=== PATIENT | female | born 1950 ===

== ENCOUNTER 2018-02-26 02:13 | Emergency (ER) | payer MEDICARE ==
[2018-02-26 02:14] VITALS: BMI 29.9
[2018-02-26 02:28] VITALS: RESP 20; O2SAT 100
[2018-02-26] MEDS ORDERED: Sodium Chloride 0.9% 1,000 ML IV ONE (02:43)
--- NOTE | 2018-02-26 02:46 | C.PDOC ---
History Of Present Illness 67 year old female with PMHx of HTN presents to the ED c/o body aches that started tonight at 12 midnight. Patient has previous history of body pain and is taking Lyrica for it. Patient is also c/o dizziness tonight. Patient denies fever, chills, nausea, vomit, diarrhea, weakness, numbness. Chief Complaint (Nursing): Dizziness/Lightheaded History Per: Patient History/Exam Limitations: no limitations Onset/Duration Of Symptoms: Hrs Current Symptoms Are (Timing): Still Present Number Of Syncopal Episodes: 1 Activity At Onset Of Symptoms: Lying Associated Symptoms Preceding Syncopal Episode: No Predromal Symptoms (Sudden Onset) Seizure Or Post-ictal Symptoms: None Fall Associated With With Symptoms: No Recent travel outside of the [place]: No Additional History Per: Patient Past Medical History Reviewed: Historical Data, Nursing Documentation, Vital Signs Vital Signs: Last Vital Signs Temp 98.1 F 02/26/18 02:24 Pulse 74 02/26/18 02:24 Resp 20 02/26/18 02:24 BP 165/97 H 02/26/18 02:24 Pulse Ox 100 02/26/18 04:11 - Medical History PMH: Anxiety, Arthritis, Gastritis, HTN, Hypercholesterolemia, Kidney Stones Denies: Chronic Kidney Disease Surgical History: Endoscopy Family History: States: Unknown Family Hx - Social History Hx Alcohol Use: No Hx Substance Use: No - Immunization History Hx Tetanus Toxoid Vaccination: No Hx Influenza Vaccination: No Hx Pneumococcal Vaccination: No Review Of Systems Constitutional: Positive for: Malaise. Negative for: Fever, Chills Cardiovascular: Negative for: Chest Pain, Palpitations Respiratory: Negative for: Cough, Shortness of Breath Gastrointestinal: Negative for: Nausea, Vomiting Skin: Negative for: Rash Neurological: Positive for: Dizziness. Negative for: Headache Physical Exam - Physical Exam Appears: Non-toxic, No Acute Distress Skin: Normal Color, Warm, Dry Head: Atraumatic, Normacephalic Eye(s): bilateral: Normal Inspection Oral Mucosa: Moist Neck: Normal ROM, Supple Chest: Symmetrical Cardiovascular: Rhythm Regular Respiratory: Normal Breath Sounds, No Rales, No Rhonchi, No Wheezing Gastrointestinal/Abdominal: Soft, No Tenderness, No Guarding, No Rebound Extremity: Normal ROM, No Tenderness, No Swelling Neurological/Psych: Oriented x3, Normal Speech, Normal Motor, Normal Sensation, Other (no focal deficits) Gait: Steady ED Course And Treatment - Laboratory Results Result Diagrams: 02/26/18 03:02 02/26/18 03:02 ECG: Interpreted By Me, Viewed By Me ECG Rhythm: Sinus Rhythm ECG Interpretation: No Acute Changes, Abnormal Interpretation Of ECG: NSR, LVH , Non spc St-T abnormality., abnormal tracings. Rate From EC O2 Sat by Pulse Oximetry: 100 (ON RA) Pulse Ox Interpretation: Normal - CT Scan/US CT head Other Rad Studies (CT/US): Read By Radiologist, Radiology Report Reviewed CT/US Interpretation: FINDINGS: Brain: Mild atrophy. No intracranial hemorrhage. No mass. No definite edema. Ventricles: No hydrocephalus. Bones/ joints: No acute fracture. Soft tissues: Unremarkable. Vasculature: Minimal atherosclerotic disease of intracranial arteries. Sinuses: Scattered minimal mucosal thickening. Mastoid air cells: No mastoid effusion. Orbits: Unremarkable as visualized. IMPRESSION: 1. No definite acute intracranial abnormality. 2. Incidental/non-acute findings are described above. Medical Decision Making Medical Decision Making: Plan: * CT head * EKG * Labs * Antivert 25 mg PO * Ativan 0.25 mg IVP * IV fluids * Toradol 30 mg IVP Disposition Counseled Patient/Family Regarding: Diagnosis - Disposition Referrals: [facility] [Outside] Disposition: HOME/ ROUTINE Disposition Time: 04:13 Condition: STABLE Additional Instructions: Increased Lyrica to 2 x a day. Prescriptions: Meclizine [Antivert] 12.5 mg PO Q6 #14 tab Instructions: Dizziness, Nonvertigo, (DC), Fibromyalgia Forms: [facility] (Macedonian), Gen Discharge Inst Armenian Print Language: FRISIAN - POA Present On Arrival: None - Clinical Impression Clinical Impression: Dizziness, Myalgia - Scribe Statement The provider has reviewed the documentation as recorded by the Scribe Patel Ontiveros All medical record entries made by the Scribe were at my direction and personally dictated by me. I have reviewed the chart and agree that the record accurately reflects my personal performance of the history, physical exam, medical decision making, and the department course for this patient. I have also personally directed, reviewed, and agree with the discharge instructions and disposition.
[2018-02-26 03:05] LABS: BASO # 0.1 K/uL (0.0-0.2); BASO % 0.8 % (0.0-2.0); EOS # 0.1 K/uL (0.0-0.7); EOS % 1.8 % (0.0-4.0); HEMOGLOBIN 13.1 g/dL (11.0-16.0); LYMPH # 2.4 K/uL (1.0-4.3); LYMPH % 36.8 % (20.0-40.0); MEAN CELL VOLUME 87.3 fL (81.0-99.0); MEAN CORPUSCULAR HEMOGLOBIN 29.5 pg (27.0-31.0); MEAN CORPUSCULAR HGB CONC 33.8 g/dL (33.0-37.0); MONO # 0.7 K/uL (0.0-0.8); MONO % 10.2 % (0.0-10.0); NEUT # 3.3 K/uL (1.8-7.0); NEUT % 50.4 % (50.0-75.0); NRBC % 0.1 % (0.0-2.0); RBC 4.44 Mil/uL (3.80-5.20); RED CELL DISTRIBUTION WIDTH 13.3 % (11.5-14.5); WHITE BLOOD COUNT 6.5 K/uL (4.8-10.8)
[2018-02-26 03:21] LABS: ALBUMIN 3.9 g/dL (3.5-5.0); CALCIUM 9.1 mg/dl (8.6-10.4); GFR AFRICAN-AMERICAN > 60; GFR NON-AFRICAN AMERICAN > 60
[2018-02-26] MEDS ORDERED: Sodium Chloride 0.9% 1,000 ML ONE (03:24)
[2018-02-26 03:26] LABS: ALT/SGPT 15 U/L (9-52); AST/SGOT 28 U/L (14-36); BLOOD UREA NITROGEN 20 mg/dL (7-17)
--- NOTE | 2018-02-26 04:10 | CT ---
EXAM: CT Head Without Intravenous Contrast CLINICAL HISTORY: 67 years old, female; Pain; Headache TECHNIQUE: Axial computed tomography images of the head/brain without intravenous contrast. All CT scans at this facility use one or more dose reduction techniques, viz.: automated exposure control; ma/kV adjustment per patient size (including targeted exams where dose is matched to indication; i.e. head); or iterative reconstruction technique. COMPARISON: No relevant prior studies available. FINDINGS: Brain: Mild atrophy. No intracranial hemorrhage. No mass. No definite edema. Ventricles: No hydrocephalus. Bones/joints: No acute fracture. Soft tissues: Unremarkable. Vasculature: Minimal atherosclerotic disease of intracranial arteries. Sinuses: Scattered minimal mucosal thickening. Mastoid air cells: No mastoid effusion. Orbits: Unremarkable as visualized. IMPRESSION: 1. No definite acute intracranial abnormality. 2. Incidental/non-acute findings are described above.
[2018-02-26 04:38] VITALS: BP 174/75; PULSE 70; TEMP 97.7
--- NOTE | 2018-02-28 12:20 | CARD ---
APPROVED REPORT EKG Measurement Heart [id number] <Conclusion> Normal sinus rhythm Left ventricular hypertrophy with QRS widening and repolarization abnormality Abnormal ECG
== END 2018-02-26 04:31 | disposition home or self-care (01) ==
LOC: C.ER 02:13
DX: R42 Dizziness and giddiness (principal); M79.1 Myalgia
CPT/HCPCS: 70450; 80053; 82550; 84484; 85025; 93005; 96361; 96374; 99285; J1885; J7030

== ENCOUNTER 2018-10-15 12:41 | Outpatient (CLI) | payer MEDICARE | END 2018-10-15 12:42 | disposition home or self-care (01) | LOC: C.MAMMO 12:42 ==